=== PATIENT | male | born 1945 | race Caucasian/White ===

== ENCOUNTER 2020-01-29 10:51 | Emergency (ER) | payer BC, MEDICARE ==
--- NOTE | 2020-01-29 11:00 | ER Document Report ---
ED Medical Screen (RME) - General Chief Complaint: Fall Stated Complaint: FALL/HEAD PAIN Time Seen by Provider: 01/29/20 10:56 Primary Care Provider: REBA PERERA MD [Primary Care Provider] - Follow up as needed Information source: Patient Notes: This 74-year-old male who fell off of the 6-8 step off of a ladder striking his head. He states he takes no blood thinners he had no loss of consciousness his son was there he does have a laceration to the top of his occiput bleeding controlled as well as to his right arm medially just distal to the olecranon. And his left hand along the volar fingers. I greeted and performed a rapid initial assessment of this patient. Comprehensive ED assessment and evaluation of the patient, analysis of test results and completion of the medical decision making process will be conducted by additional ED providers. - Related Data Allergies/Adverse Reactions: No Known Allergies Allergy (Verified 01/29/20 10:55) Physical Exam - Vital signs Vitals: Temp Pulse Resp BP Pulse Ox 98.1 F 107 H 16 154/84 H 94 01/29/20 10:54 01/29/20 10:54 01/29/20 10:54 01/29/20 10:54 01/29/20 10:54 Course - Vital Signs Vital signs: Temp Pulse Resp BP Pulse Ox 98.1 F 107 H 16 154/84 H 94 01/29/20 10:54 01/29/20 10:54 01/29/20 10:54 01/29/20 10:54 01/29/20 10:54 Doctor's Discharge - Discharge Referrals: REBA PERERA MD [Primary Care Provider] - Follow up as needed
--- NOTE | 2020-01-29 11:47 | RADIOLOGY REPORT (SQ) ---
EXAM DESCRIPTION: CT CERVICAL SPINE WITHOUT; CT HEAD WITHOUT IMAGES COMPLETED DATE/TIME: 01/29/2020 11:35 am REASON FOR STUDY: fall COMPARISON: None. TECHNIQUE: Axial images acquired through the brain and cervical spine without intravenous contrast. Images reviewed with brain, subdural, lung, soft tissue and bone windows. Reconstructed coronal and sagittal MPR images reviewed. Images stored on PACS. All CT scanners at this facility use dose modulation, iterative reconstruction, and/or weight based d osing when appropriate to reduce radiation dose to as low as reasonably achievable (ALARA). [facility]: Dose Right [facility]: CareDose [facility]: Dose Right [facility]: Teradose 4D [facility]: [employer] RADIATION DOSE: CT Rad equipment meets quality standard of care and radiation dose reduction techniq ues were employed. CTDIvol: 18.8 mGy. DLP: 435 mGy-cm.; CT Rad equipment meets quality standard of ca re and radiation dose reduction techniques were employed. CTDIvol: 53.2 mGy. DLP: 937 mGy-cm. mGy. LIMITATIONS: None. FINDINGS: Brain Normal. No hemorrhage or mass or shift or hydrocephalus or fracture. No orbit pathology. Clear sin uses. Cervical spine Spondylosis with multilevel mild disc space narrowing and osteophytes. Mild facet arthropathy at sev eral levels. Mild degenerative anterolisthesis at the cervicothoracic junction. No fracture. Soft tissues normal. IMPRESSION: 1. No acute intracranial abnormality. 2. No acute cervical spine abnormality. Degenerative changes. TECHNICAL DOCUMENTATION: JOB ID: [id number] Quality ID # [id number]: Final reports with documentation of one or more dose reduction techniques (e.g., Au tomated exposure control, adjustment of the mA and/or kV according to patient size, use of iterative reconstruction technique) 2010 [employer]- All Rights Reserved Reading location - IP/workstation name: [email or web address]
--- NOTE | 2020-01-29 11:53 | ER Document Report ---
ED Fall - General Chief Complaint: Fall Stated Complaint: FALL/HEAD PAIN Time Seen by Provider: 01/29/20 10:56 Primary Care Provider: REBA PERERA MD [ACTIVE STAFF] - Follow up as needed Information source: Patient Notes: 74-year-old man presents to the emergency department with a history of a fall from a ladder this morning. States that he was helping his son put a 10 roof onto the building when he lost his balance and fell about 8 feet onto the ground. He denies loss of consciousness and sustained an injury to the head laceration and multiple areas of skin abrasion. He states he was able to get up and walk around without difficulties. He denies dizziness, nausea, or associated findings. He is not on a blood thinner at this time. Past medical history is significant for diabetes mellitus. - Related data Allergies/Adverse Reactions: No Known Allergies Allergy (Verified 01/29/20 10:55) Past Medical History - General Information source: Patient - Social History Smoking Status: Never Smoker Family History: Reviewed & Not Pertinent Patient has homicidal ideation: No Endocrine Medical History: Reports: Hx Diabetes Mellitus Type 2 Review of Systems - Review of Systems Notes: Constitutional: Negative for fever. HENT: HPI Eyes: Negative for visual changes. Cardiovascular: Negative for chest pain. Respiratory: Negative for shortness of breath. Gastrointestinal: Negative for abdominal pain, vomiting or diarrhea. Genitourinary: Negative for dysuria. Musculoskeletal: Negative for back pain. Skin: See HPI Neurological: Negative for headaches, weakness or numbness. 10 point ROS negative except as marked above and in HPI. Physical Exam - Vital signs Vitals: Temp Pulse Resp BP Pulse Ox 98.1 F 107 H 16 154/84 H 94 01/29/20 10:54 01/29/20 10:54 01/29/20 10:54 01/29/20 10:54 01/29/20 10:54 - Notes Notes: PHYSICAL EXAMINATION: Physical Exam: General: Well-nourished well-developed 74-year-old man in no acute distress HEENT: Right posterior scalp approximately 1 cm laceration, pupils equal round and reactive to light, MM moist,nares clear, oropharynx clear, airway patent Neck: supple, no adenopathy, no masses. Good range of motion Lungs: clear, no wheezing, no rales no rhonchi CVS: Regular rate and rhythm no murmur gallop or rub Abdomen: Soft, active, nontender, no masses, no hepatosplenomegaly Ext: No edema, clubbing or cyanosis. Neuro: Alert and responsive, moving all 4 extremities on command, cranial nerves intact, no focal findings Skin: Right lateral forearm 2 cm skin tear, left hand, fifth digit, 0.5 cm skin tear. PSYCH: Normal mood, normal affect. Course - Vital Signs Vital signs: Temp Pulse Resp BP Pulse Ox 98.1 F 90 18 134/59 H 96 01/29/20 12:24 01/29/20 12:24 01/29/20 12:24 01/29/20 12:24 01/29/20 12:24 - Diagnostic Test Radiology reviewed: Image reviewed, Reports reviewed Radiology results interpreted by me: 01/29/20 11:53 CT head: No acute intracranial abnormalities. CT cervical spine: Acute findings, no fracture seen. Procedures - Laceration/Wound Repair Left Head 5th digit Time completed: 12:01 Wound length (cm): 1 - Scalp laceration Wound's Depth, Shape: Superficial Wound explored: Clean Wound Repaired With: Dermabond Left 5th digit Time completed: 12:11 Wound length (cm): 0.5 Wound's Depth, Shape: Superficial Wound explored: Clean Wound Repaired With: Dermabond Discharge - Discharge Clinical Impression: Left fifth finger laceration Contusion of head Qualifiers: Encounter type: initial encounter Contusion of head detail: scalp Qualified Code(s): S00.03XA - Contusion of scalp, initial encounter Laceration of scalp Qualifiers: Encounter type: initial encounter Qualified Code(s): S01.01XA - Laceration without foreign body of scalp, initial encounter Abrasion forearm Qualifiers: Encounter type: initial encounter Laterality: right Qualified Code(s): S50.811A - Abrasion of right forearm, initial encounter Condition: Good Disposition: HOME, SELF-CARE Instructions: Head Injury Precautions ([facility]) Additional Instructions: You were in the emergency department after a fall today with sustain laceration to the scalp and skin tears. Please do not apply ointment to the areas of Dermabond. You may use Tylenol or ibuprofen for pain. Follow-up with your primary care doctor if you have any questions regarding the healing of the laceration sites. Head injury precautions. If you having worsening symptoms or concerns you may return to the emergency department for further evaluation and treatment. HOME CARE INSTRUCTIONS & INFORMATION: Thank you for choosing us for your medical needs. We hope you're satisfied with the care you received. After you leave, you must properly care for your problem and, at the same time, observe its progress. Any condition can change. Some illnesses can change rapidly over hours or days. If your condition worsens, return to the Emergency Department or see your physician promptly. ABOUT YOUR X-RAYS AND EKG'S: If you had an EKG or X-rays taken, they have been read by the Emergency Physician. The X-rays and EKG's will also be read by a Radiologist or Inspector Returned Materials within 24 hours. If discrepancies are noted, you will be notified by telephone. Please be certain the ED has a correct telephone number & address where you can be reached. Also, realize that some fractures or abnormalities do not show up on initial X-rays. If your symptoms continue, see your physician. ABOUT YOUR LABORATORY TEST: If you had laboratory tests, the results have been reviewed by the Emergency Physician. Some test results (for example cultures) may not be available for several days. You will be contacted if any test result shows you need additional treatment. Please be certain the ED has a correct telephone number and address where you can be reached. ABOUT YOUR MEDICATIONS: You will receive instructions on how to take your medicine on the prescription label you receive. Additional information may be provided by the Pharmacy. If you have questions afterwards, call the ED for clarification or further instructions. Some prescribed medications may cause drowsiness. Do not perform tasks such as driving a car or operating machinery without consulting your Pharmacist. If you feel you need a refill of pain medication, your condition will need re-evaluation. Please do not call for a refill of any medication. ABOUT YOUR SIGNATURE: Signature of this document acknowledges to followin. Understanding that you received emergency treatment and that you may be released before al medical problems are known or treated. Please be certain the ED has a correct phone number & address where you can be reached. 2. Acknowledgement that you will arrange for follow-up care as recommended. 3. Authorization for the Emergency Physician to provide information to your follow-up Physician in order to maximize your care. AT ANY TIME, IF YOUR SYMPTOMS CHANGE SIGNIFICANTLY OR WORSEN OR YOU DEVELOP NEW SYMPTOMS, RETURN TO THE EMERGENCY DEPARTMENT IMMEDIATELY FOR RE-EVALUATION. OUR GOAL IS TO PROVIDE EXCELLENT MEDICAL CARE! WE HOPE THAT WE HAVE MET YOUR EXPECTATIONS DURING YOUR EMERGENCY DEPARTMENT VISIT AND THAT YOU FEEL YOU HAVE RECEIVED EXCELLENT CARE! Referrals: REBA PERERA MD [ACTIVE STAFF] - Follow up as needed
[2020-01-29 12:26] VITALS: BP 134/59
== END 2020-01-29 12:25 | disposition home or self-care (01) ==
LOC: ER 10:51
PROC: 0HQGXZZ Repair Left Hand Skin, External Approach (ICD-10-PCS; principal; 2020-01-29)
PROC: 0HQ0XZZ Repair Scalp Skin, External Approach (ICD-10-PCS; 2020-01-29)
DX: S01.01XA Laceration without foreign body of scalp, initial encounter (principal); S50.811A Abrasion of right forearm, initial encounter; S61.217A Laceration without foreign body of left little finger without damage to nail, initial encounter; R51 Headache; W11.XXXA Fall on and from ladder, initial encounter; E11.9 Type 2 diabetes mellitus without complications
CPT/HCPCS: 12001; G0168; 70450; 72125; 99283